=== PATIENT | female | born 1990 ===

== ENCOUNTER 2019-07-12 16:51 | Emergency (ER) | payer OTHER ==
--- NOTE | 2019-07-12 18:03 | UC ---
FLU HPI - HPI Summary HPI Summary: 28 year old female, no PMH, presents with lightheadedness/ vertigo, body aches ( fatigue, no cramping), nausea/ mild abdominal pains, infrequent dry cough fatigue with increased sleeping, intermittent diarrhea, x 2 weeks. symptoms improved with NyQuil, DayQUil. stopped taking medication ~ 2 days ago b/c felt improving, however symtpoms returned off of medication. no ENT history, no prior occurrence. No syncope but felt room spinning last night to where she had to lay down. - History of Current Complaint Chief Complaint: UCRespiratory Stated Complaint: FLU SYMPTOMS Time Seen by Provider: 07/12/19 17:38 Hx Obtained From: Patient Hx Last Menstrual Period: 03/26/19 ?: No - denies Onset/Duration: Sudden Onset, Lasting Weeks - 2 Severity Currently: Mild Severity Initially: Mild Pain Intensity: 2 Pain Scale Used: 0-10 Numeric Associated Signs & Symptoms: Positive: Myalgia, Cough, Sore Throat, Diarrhea. Negative: Fever, T Max, F/C, Nasal Congestion, Headache, Vomiting - Allergy/Home Medications Allergies/Adverse Reactions: Allergies Allergy/AdvReac Type Severity Reaction Status Date / Time No Known Allergies Allergy Verified 07/12/19 17:14 Home Medications: Home Medications D-Methorphan/PE/Acetaminophen [Vicks Dayquil Cold & Flu] 1 cap PO BID 07/12/19 [ History Confirmed 07/12/19] Dm/Acetaminophen/Doxylamine [Vicks Nyquil Cold & Flu N 15-6.25-325 mg] 1 cap PO BEDTIME 07/12/19 [History Confirmed 07/12/19] PMH/Surg Hx/FS Hx/Imm Hx Previously Healthy: Yes - Surgical History Surgical History: Yes Surgery Procedure, Year, and Place: appendectomy - Family History Known Family History: Positive: Non-Contributory - Social History Occupation: Student Alcohol Use: Rare Substance Use Type: None Smoking Status (MU): Never Smoked Tobacco Review of Systems All Other Systems Reviewed And Are Negative: Yes Constitutional: Positive: Fatigue ENT: Positive: Nasal Discharge Respiratory: Positive: Cough Gastrointestinal: Positive: Diarrhea Musculoskeletal: Positive: Arthralgia, Myalgia. Negative: Decreased ROM Psychological: Positive: Negative Is Patient Immunocompromised?: No Physical Exam Triage Information Reviewed: Yes Appearance: Well-Appearing, No Pain Distress, Well-Nourished Vital Signs: Initial Vital Signs Temp 99.2 F 07/12/19 17:10 Pulse 111 07/12/19 17:10 Resp 18 07/12/19 17:10 BP 122/71 07/12/19 17:10 Pulse Ox 100 07/12/19 17:10 Vital Signs Reviewed: Yes Eyes: Positive: Conjunctiva Clear ENT: Positive: Hearing grossly normal, Pharynx normal, TMs normal, Uvula midline. Negative: Nasal congestion, Tonsillar swelling, Tonsillar exudate, Sinus tenderness Neck: Positive: Supple, Nontender, No Lymphadenopathy. Negative: Nuchal Rigidity, Tenderness @, Enlarged Nodes @ - no posterior, anterior cervical LAD Respiratory: Positive: Chest non-tender, Lungs clear, Normal breath sounds, No respiratory distress, No accessory muscle use. Negative: Respiratory distress, Decreased breath sounds, Crackles, Rhonchi, Stridor, Wheezing, Expiration Cardiovascular: Positive: RRR Abdomen Description: Positive: Nontender, No Organomegaly, Soft. Negative: CVA Tenderness (R), CVA Tenderness (L), Distended, Guarding, Hepatomegaly, Splenomegaly Musculoskeletal: Positive: ROM Intact, No Edema Neurological: Positive: Alert, Other: - patellar reflexes hyperactive ~ 3+ b/l = bilaterally Skin Exam: Normal Flu Course/Dx - Course Course Of Treatment: - Flu swab - negative - Blood work completed- results will be in with in 1-4 days - Increase fluid - Decongestant, over the counter, such as claritin to potentially help with dizziness/ vertigo symptoms. - Follow up with [facility] within 2-3 days for repeat evaluation if symptoms worsen. - Continue over the counter medicaions as needed for symptoms - Differential Dx/Diagnosis Differential Diagnosis/HQI/PQRI: RSV, Upper Respiratory Infection Provider Diagnosis: Malaise Discharge ED - Sign-Out/Discharge Documenting (check all that apply): Patient Departure All imaging exams completed and their final reports reviewed: No Studies - Discharge Plan Condition: Good [facility]position: [facility] Patient Education Materials: Lightheadedness (ED) Referrals: No Primary Care Phys,NOPCP [Primary Care Provider] - [facility] [Outside] Additional Instructions: - Flu swab - negative. - Blood work completed- results will be in with in 1-4 days - Increase fluid - Decongestant, over the counter, such as claritin to potentially help with dizziness/ vertigo symptoms. - Follow up with [facility] within 2-3 days for repeat evaluation if symptoms worsen. - Continue over the counter medicaions as needed for symptoms - Billing Disposition and Condition Condition: GOOD [facility]
[2019-07-12 18:15] LABS: Influenza A Molecular NEGATIVE (Negative); Influenza B Molecular NEGATIVE (Negative)
[2019-07-13 10:02] LABS: ABS Basophils 0.1 10^3/ul (0-0.2); ABS Lymphocytes 3.1 10^3/ul (1.0-4.8); ABS Monocytes 0.5 10^3/ul (0-0.8); ABS Neutrophils 7.3 10^3/ul (1.5-7.7); Eosinophil % 0.4 %; Hematocrit 40 % (35-47); Hemoglobin 14.3 g/dL (12.0-16.0); Lymphocyte % 28.3 %; Mean Corpuscular HGB Conc 36 g/dL (31-36); Mean Corpuscular Hemoglobin 32 pg (27-31); Mean Corpuscular Volume 87 fL (80-97); Mean Platelet Volume 8.3 fL (7.4-10.4); Nucleated Red Blood Cells % 0.1; Platelet Count 334 10^3/uL (150-450); Red Blood Count 4.54 10^6 /uL (3.70-4.87); Red Cell Distribution Width 12 % (10-15)
[2019-07-13 10:20] LABS: Albumin 4.7 g/dL (3.2-5.2); Calcium 9.5 mg/dL (8.6-10.3); Magnesium 2.2 mg/dL (1.9-2.7); Potassium 3.9 mmol/L (3.5-5.0); Total Bilirubin 0.5 mg/dL (0.2-1.0)
[2019-07-13 10:26] LABS: Albumin/Globulin Ratio 1.7 (1-3); BUN/Creatinine Ratio 16.9 (8-20); EGFR African American 108.8 (>60); EGFR Non-African American 89.9 (>60); Globulin 2.8 g/dL (2-4); Total Protein 7.5 g/dL (6.4-8.9)
== END 2019-07-12 18:38 ==
LOC: UCEAST 16:51
DX: R53.81 Other malaise (principal); R42 Dizziness and giddiness; M79.10 Myalgia, unspecified site; R53.83 Other fatigue; R11.0 Nausea; R10.9 Unspecified abdominal pain; R05 Cough; R19.7 Diarrhea, unspecified
CPT/HCPCS: 36415; 80053; 82607; 83735; 84443; 85025; 86308; 86618; 99211; G0463